=== PATIENT | female | born 1935 | race Caucasian/White ===

== ENCOUNTER → 2020-07-01 | Outpatient (CLI) | payer OTHER ==
[~2020-07-01] MED LIST: ZOFRAN ODT 4 MG4 MG SL
== END ==
LOC: US 10:00
DX: I71.4 Abdominal aortic aneurysm, without rupture (principal)
CPT/HCPCS: 93979

== ENCOUNTER 2020-07-26 18:53 | Emergency (ER) | payer OTHER ==
[2020-07-26 19:50] LABS: HEMOGLOBIN 14.2 gm/dl (12.3-15.3); RED BLOOD COUNT 4.45 M/UL (4.00-5.10); WHITE BLOOD COUNT 8.4 K/UL (4.5-11.0)
[2020-07-26 20:10] LABS: BUN/CREATININE RATIO 24 (0-10)
== END 2020-07-26 21:07 | disposition home or self-care (01) ==
LOC: ER1 18:53
PROVIDERS: Family Medicine
DX: I83.812 Varicose veins of left lower extremity with pain (principal); J44.9 Chronic obstructive pulmonary disease, unspecified; I10 Essential (primary) hypertension; Z88.0 Allergy status to penicillin; Z88.1 Allergy status to other antibiotic agents
CPT/HCPCS: 73590; 80053; 85025; 85652; 86140; 99283

== ENCOUNTER 2020-10-04 12:11 | Emergency (ER) | payer OTHER | END 2020-10-04 15:59 | disposition home or self-care (01) | LOC: ER1 12:11 | DX: M79.662 Pain in left lower leg (principal) | CPT/HCPCS: 93971; 99283 ==

== ENCOUNTER 2020-10-20 13:22 | Emergency (ER) | payer OTHER ==
[2020-10-20] MEDS ORDERED: HYDROCODON-ACE1 EAC4 PO (15:24)
== END 2020-10-20 15:45 | disposition home or self-care (01) ==
LOC: ER1 13:22
DX: S52.501A Unspecified fracture of the lower end of right radius, initial encounter for closed fracture (principal); I10 Essential (primary) hypertension; W13.0XXA Fall from, out of or through balcony, initial encounter; Z79.899 Other long term (current) drug therapy
CPT/HCPCS: 29125; 73110; 99283